=== PATIENT | female | born 1950 | race Caucasian/White ===

== ENCOUNTER 2023-02-18 22:27 | Inpatient (IN) | payer MEDICARE, MEDICAID ==
[~2023-02-18] VITALS: Ht 167.6 cm; Wt 91.2 kg
[2023-02-18 22:27] VITALS: BP 118/50; PULSE 79; RESP 17; RESP 18; TEMP 97.7
[~2023-02-18 22:27] MED LIST: BACL-141 PO; FLUT16SP15; LEVO88TA7 PO; METF-416 PO; MIRA25TA PO; NITR50CA50 PO; PANT40TA51 PO; SIMV-43 PO; TRAM50TA3 PO
[2023-02-19] MEDS ORDERED: IRON SUCROSE COMPLEX 100 MG/5 ML ML IV SCH (01:45)
[2023-02-19] MEDS ORDERED: DEXTROSE 50% WATER 50ML SYRINGE IV PRN (01:45)
[2023-02-19] MEDS ORDERED: ONDANSETRON HCL 4MG/2ML INJ IV PRN (02:30)
[2023-02-19] MEDS ORDERED: DOCUSATE SODIUM 100MG CAPSULE PO PRN (02:30)
[2023-02-19] MEDS ORDERED: CLONIDINE 0.1MG TABLET PO PRN (02:30)
[2023-02-19] MEDS ORDERED: MORPHINE SULFATE 2 MG/ML CPJ (NOT FOR IM USE) IV PRN (02:30)
[2023-02-19] MEDS ORDERED: NALOXONE HCL 0.4 MG/ML 1ML VIAL IV PRN (02:30)
[2023-02-19] MEDS ORDERED: IPRATROPIUM/ALBUTEROL 0.5-3(2.5)MG/3ML NEB HHN PRN (02:30)
[2023-02-19] MEDS ORDERED: MAGNESIUM/ALUMINUM HYDROXIDE/SIMETHICONE 30ML UDC PO PRN (02:30)
[2023-02-19] MEDS: HYDROCODONE/ACETAMINOPHEN 5/325MG TABLET PO PRN ×2 (03:56→08:45)
[2023-02-19] MEDS: BLOOD SUGAR DIAGNOSTIC STRIP TEST SCH ×4 (06:21→21:00)
[2023-02-19] MEDS: LEVOTHYROXINE SODIUM 88MCG TABLET PO SCH (06:22)
[2023-02-19 07:26] LABS: BASOPHILS % 0.6 % (0.0-2.0); EOSINOPHILS % 3.7 % (0.0-5.0); HEMATOCRIT. 23.2 % (36.0-48.0); LYMPHOCYTES % 23.1 % (20.0-50.0); MEAN CORPUSCULAR HEMOGLOBIN 32.4 pg (28.0-32.0); MEAN CORPUSCULAR HGB CONC 34.4 g/dL (31.0-37.0); MEAN CORPUSCULAR VOLUME 94.1 fL (81.0-99.0); MEAN PLATELET VOLUME 8.5 fl (7.4-10.4); MONOCYTES % 10.6 % (2.0-8.0); PLATELET 210 x1000/uL (130-400); RED BLOOD CELL COUNT 2.47 mill/uL (4.2-5.4); RED CELL DISTRIBUTION WIDTH 13.3 % (11.6-14.6); WHITE BLOOD COUNT 7.1 x1000/uL (4.5-11.0)
[2023-02-19 08:00] VITALS: BP 135/56; PULSE 77; RESP 19; TEMP 97.5
[2023-02-19 08:26] LABS: CHLORIDE 101 mEq/L (98-107); INDEX HEMOLYSI 1 (1-3); INDEX ICTERIC 1 (1-4); INDEX LIPEMIC 1 (1-3); SODIUM 131 mEq/L (136-145)
[2023-02-19 08:34] LABS: ALANINE AMINOTRANSFERASE 30 IU/L (13-61); ALBUMIN 2.7 g/dL (3.4-5.0); ASPARTATE AMINOTRANSFERASE 25 IU/L (15-37); BILIRUBIN TOTAL 0.9 mg/dL (0.1-1.0); CALCIUM 8.5 mg/dL (8.5-10.1); CARBON DIOXIDE 25 mEq/L (21-32); CREATININE 0.9 mg/dL (0.6-1.3); GLUCOSE 252 mg/dL (70-105); PROTEIN TOTAL 6.2 g/dL (6.0-8.3); UREA NITROGEN BLOOD 23 mg/dL (7-21)
[2023-02-19] MEDS: PANTOPRAZOLE SODIUM 40 MG/VIAL IV SCH (09:03)
[2023-02-19] MEDS: INSULIN LISPRO 100 UNITS/ML SUBCUT SCH ×4 (09:43→20:52)
[2023-02-19] MEDS: LACTULOSE 20G/30ML UDC PO SCH ×3 (13:15→21:00)
[2023-02-19] MEDS: IRON SUCROSE COMPLEX 200 MG in SODIUM CHLORIDE 0.9% 100 ML IV SCH (13:26)
[2023-02-19] MEDS: DOCUSATE SODIUM 100MG CAPSULE PO SCH (16:17)
[2023-02-19 20:04] VITALS: BP 128/54; PULSE 82; RESP 20; TEMP 97.1
[2023-02-19] MEDS: ENOXAPARIN 30MG/0.3ML SYR SUBCUT SCH (20:43)
[2023-02-19] MEDS: ATORVASTATIN CALCIUM 10MG TABLET PO SCH (20:44)
[2023-02-19] MEDS: INSULIN GLARGINE 100 UNITS/ML SUBCUT SCH (22:00)
[2023-02-20] MEDS: HYDROCODONE/ACETAMINOPHEN 5/325MG TABLET PO PRN ×3 (03:07→21:57)
[2023-02-20] MEDS: LEVOTHYROXINE SODIUM 88MCG TABLET PO SCH (06:16)
[2023-02-20] MEDS: BLOOD SUGAR DIAGNOSTIC STRIP TEST SCH ×4 (06:29→21:21)
[2023-02-20 07:16] LABS: INDEX HEMOLYSI 1 (1-3)
[2023-02-20] MEDS: INSULIN LISPRO 100 UNITS/ML SUBCUT SCH ×4 (07:31→21:00)
[2023-02-20 07:46] LABS: FOLIC ACID (FOLATE) SERUM >20 ng/mL ng/mL (>5.38); VITAMIN B12 SERUM 1029 pg/mL (211-911)
[2023-02-20 08:00] VITALS: BP 116/45; PULSE 76; RESP 18; TEMP 97.1
[2023-02-20] MEDS: POLYETHYLENE GLYCOL 3350 (17GM) 1 DOSE PACK PO SCH (08:25)
[2023-02-20] MEDS: DOCUSATE SODIUM 100MG CAPSULE PO SCH ×2 (08:25→16:14)
[2023-02-20] MEDS: ENOXAPARIN 30MG/0.3ML SYR SUBCUT SCH ×2 (08:36→21:19)
[2023-02-20] MEDS: PANTOPRAZOLE SODIUM 40 MG/VIAL IV SCH (09:00)
[2023-02-20] MEDS: IRON SUCROSE COMPLEX 200 MG in SODIUM CHLORIDE 0.9% 100 ML IV SCH (13:24)
[2023-02-20 20:00] VITALS: BP 137/52; PULSE 85; RESP 18; TEMP 99.5
[2023-02-20] MEDS: ATORVASTATIN CALCIUM 10MG TABLET PO SCH (21:19)
[2023-02-20] MEDS: INSULIN GLARGINE 100 UNITS/ML SUBCUT SCH (22:05)
[2023-02-20 22:21] VITALS: BP 137/52; PULSE 85; RESP 18; TEMP 99.5
[2023-02-21] MEDS: HYDROCODONE/ACETAMINOPHEN 5/325MG TABLET PO PRN ×4 (04:02→23:40)
[2023-02-21] MEDS: BLOOD SUGAR DIAGNOSTIC STRIP TEST SCH ×4 (07:06→21:00)
[2023-02-21] MEDS: LEVOTHYROXINE SODIUM 88MCG TABLET PO SCH (07:07)
[2023-02-21 08:00] VITALS: BP 129/67; PULSE 86; RESP 20; TEMP 98.6
[2023-02-21] MEDS: INSULIN LISPRO 100 UNITS/ML SUBCUT SCH ×4 (09:00→21:00)
[2023-02-21] MEDS: POLYETHYLENE GLYCOL 3350 (17GM) 1 DOSE PACK PO SCH (09:06)
[2023-02-21] MEDS: DOCUSATE SODIUM 100MG CAPSULE PO SCH ×2 (09:06→17:58)
[2023-02-21] MEDS: ENOXAPARIN 30MG/0.3ML SYR SUBCUT SCH ×2 (09:07→21:08)
[2023-02-21] MEDS: PANTOPRAZOLE SODIUM 40 MG/VIAL IV SCH (09:42)
[2023-02-21 12:46] LABS: CLARITY URINE TURBID (CLEAR); COLOR URINE YELLOW (YELLOW); GLUCOSE URINE 3+ (NEGATIVE); KETONES URINE TRACE (NEGATIVE); LEUKOCYTE ESTERASE URINE 3+ (NEGATIVE); NITRITE URINE POSITIVE (NEGATIVE); OCCULT BLOOD URINE 2+ (NEGATIVE); PH URINE 5.5 (4.5-8.0); PROTEIN URINE 1+ (NEGATIVE)
[2023-02-21 12:56] LABS: BASOPHILS % 0.4 % (0.0-2.0); EOSINOPHILS % 1.4 % (0.0-5.0); HEMATOCRIT. 28.4 % (36.0-48.0); HEMOGLOBIN. 9.7 g/dL (12.0-16.0); LYMPHOCYTES % 12.5 % (20.0-50.0); MEAN CORPUSCULAR HEMOGLOBIN 32.4 pg (28.0-32.0); MEAN CORPUSCULAR HGB CONC 34.2 g/dL (31.0-37.0); MEAN CORPUSCULAR VOLUME 94.7 fL (81.0-99.0); MEAN PLATELET VOLUME 8.2 fl (7.4-10.4); MONOCYTES % 7.8 % (2.0-8.0); NEUTROPHILS % 77.9 % (40.0-76.0); PLATELET 328 x1000/uL (130-400); RED CELL DISTRIBUTION WIDTH 13.3 % (11.6-14.6); WHITE BLOOD COUNT 11.4 x1000/uL (4.5-11.0)
[2023-02-21 13:02] LABS: CALCIUM 8.7 mg/dL (8.5-10.1); CARBON DIOXIDE 22 mEq/L (21-32); CHLORIDE 98 mEq/L (98-107); INDEX HEMOLYSI 1 (1-3); INDEX ICTERIC 1 (1-4); INDEX LIPEMIC 1 (1-3); POTASSIUM 4.2 mEq/L (3.5-5.1); SODIUM 127 mEq/L (136-145); UREA NITROGEN BLOOD 19 mg/dL (7-21)
[2023-02-21 13:06] LABS: CREATININE 0.8 mg/dL (0.6-1.3); GLUCOSE 305 mg/dL (70-105)
[2023-02-21 13:09] LABS: BACTERIA URINE 4+; SQUAMOUS EPITHELIAL CELL URINE 1+ /lpf (RARE/1+); WBC URINE TNTC /hpf (0-2)
[2023-02-21 13:14] LABS: YEAST URINE FEW
[2023-02-21] MEDS: MEROPENEM 500 MG in SODIUM CHLORIDE 0.9% 50 ML IV SCH ×2 (14:53→21:51)
[2023-02-21] MEDS: IRON SUCROSE COMPLEX 200 MG in SODIUM CHLORIDE 0.9% 100 ML IV SCH (14:54)
[2023-02-21] MEDS: ERGOCALCIFEROL 50000UNITS CAPSULE PO SCH (16:21)
[2023-02-21] MEDS: LACTULOSE 20G/30ML UDC PO SCH ×3 (16:21→21:00)
[2023-02-21 19:37] VITALS: BP 111/42; PULSE 75; RESP 20; TEMP 97.9
[2023-02-21] MEDS: ATORVASTATIN CALCIUM 10MG TABLET PO SCH (21:08)
[2023-02-21] MEDS: INSULIN GLARGINE 100 UNITS/ML SUBCUT SCH (22:00)
[2023-02-22] MEDS: BLOOD SUGAR DIAGNOSTIC STRIP TEST SCH ×4 (06:10→20:20)
[2023-02-22] MEDS: INSULIN LISPRO 100 UNITS/ML SUBCUT SCH ×4 (06:17→21:54)
[2023-02-22] MEDS: MEROPENEM 500 MG in SODIUM CHLORIDE 0.9% 50 ML IV SCH ×3 (06:18→21:44)
[2023-02-22] MEDS: LEVOTHYROXINE SODIUM 88MCG TABLET PO SCH (06:19)
[2023-02-22 07:48] LABS: BASOPHILS % 0.6 % (0.0-2.0); EOSINOPHILS % 2.7 % (0.0-5.0); HEMATOCRIT. 23.2 % (36.0-48.0); HEMOGLOBIN. 7.9 g/dL (12.0-16.0); LYMPHOCYTES % 21.9 % (20.0-50.0); MEAN CORPUSCULAR HEMOGLOBIN 32.6 pg (28.0-32.0); MEAN CORPUSCULAR HGB CONC 34.3 g/dL (31.0-37.0); MEAN CORPUSCULAR VOLUME 95.1 fL (81.0-99.0); MEAN PLATELET VOLUME 8.1 fl (7.4-10.4); MONOCYTES % 10.3 % (2.0-8.0); NEUTROPHILS % 64.5 % (40.0-76.0); PLATELET 267 x1000/uL (130-400); RED BLOOD CELL COUNT 2.44 mill/uL (4.2-5.4); RED CELL DISTRIBUTION WIDTH 13.1 % (11.6-14.6); WHITE BLOOD COUNT 7.3 x1000/uL (4.5-11.0)
[2023-02-22 08:00] VITALS: BP 111/52; PULSE 72; RESP 18; TEMP 98.2
[2023-02-22 08:09] LABS: CHLORIDE 104 mEq/L (98-107); INDEX HEMOLYSI 1 (1-3); INDEX ICTERIC 1 (1-4); INDEX LIPEMIC 1 (1-3); POTASSIUM 4.4 mEq/L (3.5-5.1); SODIUM 135 mEq/L (136-145)
[2023-02-22 08:15] LABS: CARBON DIOXIDE 26 mEq/L (21-32); CREATININE 0.8 mg/dL (0.6-1.3); GLUCOSE 206 mg/dL (70-105); UREA NITROGEN BLOOD 13 mg/dL (7-21)
[2023-02-22] MEDS: POLYETHYLENE GLYCOL 3350 (17GM) 1 DOSE PACK PO SCH (08:20)
[2023-02-22] MEDS: LACTULOSE 20G/30ML UDC PO SCH ×2 (08:21→12:29)
[2023-02-22] MEDS: ENOXAPARIN 30MG/0.3ML SYR SUBCUT SCH ×2 (08:23→20:19)
[2023-02-22] MEDS: PANTOPRAZOLE SODIUM 40 MG/VIAL IV SCH (08:23)
[2023-02-22] MEDS: DOCUSATE SODIUM 100MG CAPSULE PO SCH ×2 (08:24→16:11)
[2023-02-22] MEDS: HYDROCODONE/ACETAMINOPHEN 5/325MG TABLET PO PRN ×3 (08:31→20:19)
[2023-02-22 10:03] LABS: THYROID STIMULATING HORMONE 4.8 uIU/mL (0.36-3.74)
[2023-02-22] MEDS ORDERED: NALOXONE HCL 0.4MG/ML VIAL IV PRN (13:45)
[2023-02-22 20:00] VITALS: BP 144/54; PULSE 76; RESP 20; TEMP 98.8
[2023-02-22] MEDS: FAMOTIDINE 20MG TABLET PO SCH (20:18)
[2023-02-22] MEDS: ATORVASTATIN CALCIUM 10MG TABLET PO SCH (20:18)
[2023-02-22] MEDS: INSULIN GLARGINE 100 UNITS/ML SUBCUT SCH (21:53)
[2023-02-23] MEDS: HYDROCODONE/ACETAMINOPHEN 5/325MG TABLET PO PRN ×3 (04:38→21:10)
[2023-02-23 06:27] LABS: BASOPHILS % 0.7 % (0.0-2.0); EOSINOPHILS % 3.2 % (0.0-5.0); HEMATOCRIT. 25.2 % (36.0-48.0); HEMOGLOBIN. 8.6 g/dL (12.0-16.0); LYMPHOCYTES % 26.4 % (20.0-50.0); MEAN CORPUSCULAR HEMOGLOBIN 32.5 pg (28.0-32.0); MEAN CORPUSCULAR HGB CONC 34.2 g/dL (31.0-37.0); MEAN CORPUSCULAR VOLUME 95.2 fL (81.0-99.0); MEAN PLATELET VOLUME 7.7 fl (7.4-10.4); MONOCYTES % 12.1 % (2.0-8.0); NEUTROPHILS % 57.6 % (40.0-76.0); PLATELET 326 x1000/uL (130-400); RED BLOOD CELL COUNT 2.65 mill/uL (4.2-5.4); RED CELL DISTRIBUTION WIDTH 13.7 % (11.6-14.6); WHITE BLOOD COUNT 7.9 x1000/uL (4.5-11.0)
[2023-02-23] MEDS: BLOOD SUGAR DIAGNOSTIC STRIP TEST SCH ×4 (06:30→20:27)
[2023-02-23] MEDS: LEVOTHYROXINE SODIUM 88MCG TABLET PO SCH (06:31)
[2023-02-23] MEDS: MEROPENEM 500 MG in SODIUM CHLORIDE 0.9% 50 ML IV SCH (06:31)
[2023-02-23] MEDS: INSULIN LISPRO 100 UNITS/ML SUBCUT SCH ×4 (07:50→21:08)
[2023-02-23 08:00] VITALS: BP 121/52; PULSE 71; RESP 20; TEMP 98.7
[2023-02-23] MEDS: ENOXAPARIN 30MG/0.3ML SYR SUBCUT SCH ×2 (08:29→20:27)
[2023-02-23] MEDS: FAMOTIDINE 20MG TABLET PO SCH ×2 (08:29→20:27)
[2023-02-23] MEDS: DOCUSATE SODIUM 100MG CAPSULE PO SCH ×2 (08:29→17:24)
[2023-02-23] MEDS: POLYETHYLENE GLYCOL 3350 (17GM) 1 DOSE PACK PO SCH (08:29)
[2023-02-23 09:30] LABS: CHLORIDE 101 mEq/L (98-107); INDEX HEMOLYSI 1 (1-3); INDEX ICTERIC 1 (1-4); INDEX LIPEMIC 1 (1-3); POTASSIUM 4.3 mEq/L (3.5-5.1); SODIUM 131 mEq/L (136-145)
[2023-02-23 09:34] LABS: CALCIUM 8.3 mg/dL (8.5-10.1); CARBON DIOXIDE 26 mEq/L (21-32); CREATININE 0.7 mg/dL (0.6-1.3); GLUCOSE 259 mg/dL (70-105); UREA NITROGEN BLOOD 18 mg/dL (7-21)
[2023-02-23] MEDS ORDERED: BISACODYL 10MG SUPP PR SCH (10:30)
[2023-02-23] MEDS: LACTULOSE 20G/30ML UDC PO SCH ×2 (11:02→15:00)
[2023-02-23] MEDS: SULFAMETHOXAZOLE/TRIMETHOPRIM 800/160MG TABLET PO SCH ×2 (14:08→20:27)
[2023-02-23] MEDS ORDERED: LACTULOSE 20G/30ML UDC PO PRN (16:00)
[2023-02-23 20:00] VITALS: BP 132/51; PULSE 71; RESP 20; TEMP 98.3
[2023-02-23] MEDS: ATORVASTATIN CALCIUM 10MG TABLET PO SCH (20:27)
[2023-02-23] MEDS: INSULIN GLARGINE 100 UNITS/ML SUBCUT SCH (21:09)
[2023-02-24] MEDS: HYDROCODONE/ACETAMINOPHEN 5/325MG TABLET PO PRN ×4 (02:26→18:55)
[2023-02-24] MEDS: BLOOD SUGAR DIAGNOSTIC STRIP TEST SCH ×4 (06:02→21:00)
[2023-02-24] MEDS: LEVOTHYROXINE SODIUM 88MCG TABLET PO SCH (06:29)
[2023-02-24] MEDS: INSULIN LISPRO 100 UNITS/ML SUBCUT SCH ×4 (07:20→21:00)
[2023-02-24 07:46] VITALS: BP 155/54; PULSE 71; RESP 20; TEMP 97.7
[2023-02-24 08:01] LABS: CHLORIDE 100 mEq/L (98-107); INDEX HEMOLYSI 1 (1-3); INDEX ICTERIC 1 (1-4); INDEX LIPEMIC 1 (1-3); POTASSIUM 4.9 mEq/L (3.5-5.1); SODIUM 132 mEq/L (136-145)
[2023-02-24 08:09] LABS: CALCIUM 8.5 mg/dL (8.5-10.1); CARBON DIOXIDE 28 mEq/L (21-32); CREATININE 0.9 mg/dL (0.6-1.3); GLUCOSE 220 mg/dL (70-105); T4 FREE 1.16 ng/dL (0.76-1.46); UREA NITROGEN BLOOD 16 mg/dL (7-21)
[2023-02-24] MEDS: DOCUSATE SODIUM 100MG CAPSULE PO SCH ×2 (08:42→17:30)
[2023-02-24] MEDS: SULFAMETHOXAZOLE/TRIMETHOPRIM 800/160MG TABLET PO SCH ×2 (08:42→22:07)
[2023-02-24] MEDS: ENOXAPARIN 30MG/0.3ML SYR SUBCUT SCH ×2 (08:44→22:08)
[2023-02-24] MEDS: FAMOTIDINE 20MG TABLET PO SCH ×2 (08:44→22:07)
[2023-02-24] MEDS: POLYETHYLENE GLYCOL 3350 (17GM) 1 DOSE PACK PO SCH (08:44)
[2023-02-24] MEDS ORDERED: BISACODYL 10MG SUPP PR PRN (10:30)
[2023-02-24 20:00] VITALS: BP 110/61; PULSE 74; RESP 18; TEMP 98.1
[2023-02-24] MEDS: ATORVASTATIN CALCIUM 10MG TABLET PO SCH (22:08)
[2023-02-24] MEDS: INSULIN GLARGINE 100 UNITS/ML SUBCUT SCH (22:16)
[2023-02-25] MEDS: HYDROCODONE/ACETAMINOPHEN 5/325MG TABLET PO PRN ×4 (03:16→23:56)
[2023-02-25] MEDS: BLOOD SUGAR DIAGNOSTIC STRIP TEST SCH ×4 (06:01→21:44)
[2023-02-25] MEDS: LEVOTHYROXINE SODIUM 88MCG TABLET PO SCH (06:02)
[2023-02-25] MEDS: INSULIN LISPRO 100 UNITS/ML SUBCUT SCH ×4 (06:06→22:05)
[2023-02-25 08:00] VITALS: BP 120/51; PULSE 81; RESP 17; TEMP 97.9
[2023-02-25] MEDS: DOCUSATE SODIUM 100MG CAPSULE PO SCH ×2 (08:21→16:35)
[2023-02-25] MEDS: SULFAMETHOXAZOLE/TRIMETHOPRIM 800/160MG TABLET PO SCH ×2 (08:22→21:57)
[2023-02-25] MEDS: FAMOTIDINE 20MG TABLET PO SCH ×2 (08:22→21:57)
[2023-02-25] MEDS: ENOXAPARIN 30MG/0.3ML SYR SUBCUT SCH ×2 (08:22→21:58)
[2023-02-25] MEDS: POLYETHYLENE GLYCOL 3350 (17GM) 1 DOSE PACK PO SCH (08:25)
[2023-02-25 13:48] LABS: POTASSIUM 4.8 mEq/L (3.5-5.1)
[2023-02-25 13:56] LABS: CALCIUM 9.2 mg/dL (8.5-10.1); CREATININE 1.1 mg/dL (0.6-1.3)
[2023-02-25 14:41] LABS: BASOPHILS % 0.6 % (0.0-2.0); EOSINOPHILS % 1.5 % (0.0-5.0); LYMPHOCYTES % 21.5 % (20.0-50.0); MEAN CORPUSCULAR HEMOGLOBIN 33.2 pg (28.0-32.0); MEAN CORPUSCULAR HGB CONC 33.7 g/dL (31.0-37.0); MEAN CORPUSCULAR VOLUME 98.5 fL (81.0-99.0); MEAN PLATELET VOLUME 8.4 fl (7.4-10.4); MONOCYTES % 8.6 % (2.0-8.0); NEUTROPHILS % 67.8 % (40.0-76.0); PLATELET 439 x1000/uL (130-400); RED BLOOD CELL COUNT 2.99 mill/uL (4.2-5.4); RED CELL DISTRIBUTION WIDTH 13.6 % (11.6-14.6); WHITE BLOOD COUNT 9.5 x1000/uL (4.5-11.0)
[2023-02-25 14:58] LABS: HEMOGLOBIN. 9.9 g/dL (12.0-16.0)
[2023-02-25 14:59] LABS: HEMATOCRIT. 29.5 % (36.0-48.0)
[2023-02-25 20:00] VITALS: BP 119/64; PULSE 80; RESP 20; TEMP 97.6
[2023-02-25] MEDS: ATORVASTATIN CALCIUM 10MG TABLET PO SCH (21:57)
[2023-02-25] MEDS: INSULIN GLARGINE 100 UNITS/ML SUBCUT SCH (22:04)
[2023-02-26] MEDS: BLOOD SUGAR DIAGNOSTIC STRIP TEST SCH ×4 (06:10→21:00)
[2023-02-26] MEDS: LEVOTHYROXINE SODIUM 88MCG TABLET PO SCH (06:13)
[2023-02-26] MEDS: HYDROCODONE/ACETAMINOPHEN 5/325MG TABLET PO PRN ×3 (06:14→22:05)
[2023-02-26] MEDS: INSULIN LISPRO 100 UNITS/ML SUBCUT SCH ×4 (06:17→21:23)
[2023-02-26 06:43] LABS: BASOPHILS % 0.5 % (0.0-2.0); EOSINOPHILS % 3.1 % (0.0-5.0); HEMATOCRIT. 27.3 % (36.0-48.0); HEMOGLOBIN. 9.3 g/dL (12.0-16.0); LYMPHOCYTES % 28.6 % (20.0-50.0); MEAN CORPUSCULAR HGB CONC 34.2 g/dL (31.0-37.0); MEAN CORPUSCULAR VOLUME 96.3 fL (81.0-99.0); MEAN PLATELET VOLUME 8.2 fl (7.4-10.4); MONOCYTES % 9.8 % (2.0-8.0); PLATELET 409 x1000/uL (130-400); RED BLOOD CELL COUNT 2.83 mill/uL (4.2-5.4); WHITE BLOOD COUNT 7.5 x1000/uL (4.5-11.0)
[2023-02-26 07:35] LABS: CALCIUM 8.3 mg/dL (8.5-10.1); CREATININE 1.2 mg/dL (0.6-1.3); POTASSIUM 4.5 mEq/L (3.5-5.1)
[2023-02-26 08:00] VITALS: BP 128/48; PULSE 81; RESP 19; TEMP 97.5
[2023-02-26] MEDS: POLYETHYLENE GLYCOL 3350 (17GM) 1 DOSE PACK PO SCH (09:00)
[2023-02-26] MEDS: DOCUSATE SODIUM 100MG CAPSULE PO SCH ×2 (09:10→17:44)
[2023-02-26] MEDS: FAMOTIDINE 20MG TABLET PO SCH ×2 (09:11→21:19)
[2023-02-26] MEDS: ENOXAPARIN 30MG/0.3ML SYR SUBCUT SCH ×2 (09:11→21:26)
[2023-02-26] MEDS: SULFAMETHOXAZOLE/TRIMETHOPRIM 800/160MG TABLET PO SCH ×2 (09:11→21:00)
[2023-02-26 20:00] VITALS: BP 119/56; PULSE 69; RESP 18; TEMP 98.6
[2023-02-26] MEDS: ATORVASTATIN CALCIUM 10MG TABLET PO SCH (21:19)
[2023-02-26] MEDS: INSULIN GLARGINE 100 UNITS/ML SUBCUT SCH (22:00)
[2023-02-27] MEDS: BLOOD SUGAR DIAGNOSTIC STRIP TEST SCH ×4 (06:30→21:34)
[2023-02-27] MEDS: HYDROCODONE/ACETAMINOPHEN 5/325MG TABLET PO PRN ×3 (06:46→17:41)
[2023-02-27] MEDS: LEVOTHYROXINE SODIUM 88MCG TABLET PO SCH (06:46)
[2023-02-27] MEDS: INSULIN LISPRO 100 UNITS/ML SUBCUT SCH ×4 (07:41→21:41)
[2023-02-27 08:00] VITALS: BP 123/49; PULSE 67; RESP 20; TEMP 98.2
[2023-02-27] MEDS: DOCUSATE SODIUM 100MG CAPSULE PO SCH ×2 (08:32→16:03)
[2023-02-27] MEDS: SULFAMETHOXAZOLE/TRIMETHOPRIM 800/160MG TABLET PO SCH ×2 (08:32→20:57)
[2023-02-27] MEDS: FAMOTIDINE 20MG TABLET PO SCH (08:32)
[2023-02-27] MEDS: ENOXAPARIN 30MG/0.3ML SYR SUBCUT SCH ×2 (08:33→20:57)
[2023-02-27] MEDS: POLYETHYLENE GLYCOL 3350 (17GM) 1 DOSE PACK PO SCH (08:36)
[2023-02-27 09:19] LABS: BASOPHILS % 0.7 % (0.0-2.0); EOSINOPHILS % 2.1 % (0.0-5.0); HEMATOCRIT. 30.6 % (36.0-48.0); HEMOGLOBIN. 10.4 g/dL (12.0-16.0); LYMPHOCYTES % 22.7 % (20.0-50.0); MEAN CORPUSCULAR HEMOGLOBIN 32.8 pg (28.0-32.0); MEAN CORPUSCULAR HGB CONC 33.9 g/dL (31.0-37.0); MEAN CORPUSCULAR VOLUME 96.6 fL (81.0-99.0); MEAN PLATELET VOLUME 7.9 fl (7.4-10.4); MONOCYTES % 8.1 % (2.0-8.0); NEUTROPHILS % 66.4 % (40.0-76.0); PLATELET 466 x1000/uL (130-400); RED BLOOD CELL COUNT 3.17 mill/uL (4.2-5.4); RED CELL DISTRIBUTION WIDTH 14.4 % (11.6-14.6); WHITE BLOOD COUNT 7.2 x1000/uL (4.5-11.0)
[2023-02-27 09:20] LABS: CALCIUM 8.8 mg/dL (8.5-10.1)
[2023-02-27 09:25] LABS: CREATININE 1.1 mg/dL (0.6-1.3)
[2023-02-27 20:00] VITALS: BP 124/50; PULSE 73; RESP 19; TEMP 99
[2023-02-27] MEDS: ATORVASTATIN CALCIUM 10MG TABLET PO SCH (20:57)
[2023-02-27] MEDS: INSULIN GLARGINE 100 UNITS/ML SUBCUT SCH (21:40)
[2023-02-28] MEDS: HYDROCODONE/ACETAMINOPHEN 5/325MG TABLET PO PRN ×3 (00:54→22:12)
[2023-02-28 06:10] LABS: BASOPHILS % 0.9 % (0.0-2.0); EOSINOPHILS % 3.3 % (0.0-5.0); HEMATOCRIT. 28.2 % (36.0-48.0); HEMOGLOBIN. 9.7 g/dL (12.0-16.0); LYMPHOCYTES % 29.8 % (20.0-50.0); MEAN CORPUSCULAR HEMOGLOBIN 33.2 pg (28.0-32.0); MEAN CORPUSCULAR HGB CONC 34.4 g/dL (31.0-37.0); MEAN CORPUSCULAR VOLUME 96.4 fL (81.0-99.0); MEAN PLATELET VOLUME 7.4 fl (7.4-10.4); MONOCYTES % 11.1 % (2.0-8.0); NEUTROPHILS % 54.9 % (40.0-76.0); PLATELET 404 x1000/uL (130-400); RED BLOOD CELL COUNT 2.93 mill/uL (4.2-5.4); RED CELL DISTRIBUTION WIDTH 14.5 % (11.6-14.6); WHITE BLOOD COUNT 6.1 x1000/uL (4.5-11.0)
[2023-02-28] MEDS: BLOOD SUGAR DIAGNOSTIC STRIP TEST SCH ×4 (06:42→21:59)
[2023-02-28] MEDS: LEVOTHYROXINE SODIUM 88MCG TABLET PO SCH (06:42)
[2023-02-28] MEDS: INSULIN LISPRO 100 UNITS/ML SUBCUT SCH ×4 (07:03→22:35)
[2023-02-28 07:06] LABS: POTASSIUM 4.6 mEq/L (3.5-5.1)
[2023-02-28 07:14] LABS: CALCIUM 9.1 mg/dL (8.5-10.1); CREATININE 1.2 mg/dL (0.6-1.3)
[2023-02-28] MEDS: POLYETHYLENE GLYCOL 3350 (17GM) 1 DOSE PACK PO SCH (09:00)
[2023-02-28] MEDS: DOCUSATE SODIUM 100MG CAPSULE PO SCH ×2 (09:00→17:00)
[2023-02-28] MEDS: ENOXAPARIN 30MG/0.3ML SYR SUBCUT SCH ×2 (10:28→22:01)
[2023-02-28] MEDS: SULFAMETHOXAZOLE/TRIMETHOPRIM 800/160MG TABLET PO SCH (10:28)
[2023-02-28] MEDS: ERGOCALCIFEROL 50000UNITS CAPSULE PO SCH (10:28)
[2023-02-28] MEDS: FAMOTIDINE 20MG TABLET PO SCH (10:29)
[2023-02-28] MEDS ORDERED: ERGO80009 PO (16:24)
[2023-02-28] MEDS ORDERED: DOCU-150 PO (16:24)
[2023-02-28 20:38] VITALS: BP 121/56; PULSE 67; RESP 18; TEMP 96.8
[2023-02-28] MEDS: ATORVASTATIN CALCIUM 10MG TABLET PO SCH (22:01)
[2023-02-28] MEDS: INSULIN GLARGINE 100 UNITS/ML SUBCUT SCH (22:36)
[2023-03-01] MEDS: BLOOD SUGAR DIAGNOSTIC STRIP TEST SCH ×3 (06:24→17:00)
[2023-03-01] MEDS: LEVOTHYROXINE SODIUM 88MCG TABLET PO SCH (06:36)
[2023-03-01] MEDS: HYDROCODONE/ACETAMINOPHEN 5/325MG TABLET PO PRN ×2 (06:37→14:35)
[2023-03-01] MEDS: INSULIN LISPRO 100 UNITS/ML SUBCUT SCH ×3 (07:21→17:00)
[2023-03-01 08:00] VITALS: BP 116/50; PULSE 76; RESP 18; TEMP 98.6
[2023-03-01] MEDS: FAMOTIDINE 20MG TABLET PO SCH (08:51)
[2023-03-01] MEDS: POLYETHYLENE GLYCOL 3350 (17GM) 1 DOSE PACK PO SCH (08:51)
[2023-03-01] MEDS: ENOXAPARIN 30MG/0.3ML SYR SUBCUT SCH (08:51)
[2023-03-01] MEDS: DOCUSATE SODIUM 100MG CAPSULE PO SCH ×2 (08:51→17:00)
[2023-03-01 10:58] VITALS: BP 116/50; PULSE 76; TEMP 98.6; O2SAT 99
== END 2023-03-01 19:35 | disposition home health service (06) | DRG 963 ==
PROVIDERS: ADMIT Physical Medicine & Rehabilitation Spinal Cord Injury Medicine; ATTEND Internal Medicine
DX: S72.141A Displaced intertrochanteric fracture of right femur, initial encounter for closed fracture (principal); A41.9 Sepsis, unspecified organism; S32.511A Fracture of superior rim of right pubis, initial encounter for closed fracture; D62 Acute posthemorrhagic anemia; E44.0 Moderate protein-calorie malnutrition; E87.1 Hypo-osmolality and hyponatremia; N39.0 Urinary tract infection, site not specified; F39 Unspecified mood [affective] disorder; D72.829 Elevated white blood cell count, unspecified; D63.8 Anemia in other chronic diseases classified elsewhere; D50.9 Iron deficiency anemia, unspecified; E03.9 Hypothyroidism, unspecified; E55.9 Vitamin D deficiency, unspecified; I10 Essential (primary) hypertension; E11.65 Type 2 diabetes mellitus with hyperglycemia; F09 Unspecified mental disorder due to known physiological condition; Z96.651 Presence of right artificial knee joint; W01.0XXA Fall on same level from slipping, tripping and stumbling without subsequent striking against object, initial encounter; Y93.89 Activity, other specified; Y92.89 Other specified places as the place of occurrence of the external cause; Z79.4 Long term (current) use of insulin; Z83.3 Family history of diabetes mellitus; Z88.0 Allergy status to penicillin; Z88.1 Allergy status to other antibiotic agents; Z91.81 History of falling; Y99.8 Other external cause status; Z68.32 Body mass index [BMI] 32.0-32.9, adult
CPT/HCPCS: 36415; 80048; 80053; 80061; 81003; 82270; 82306; 82533; 82607; 82746; 82962; 83036; 83930; 84439; 84443; 85025; 87077; 87186; 93970; 97110; 97116; 97162; 97166; 97530; 97535; 97542; C9113; J1650; J1815; J2185; J7050